=== PATIENT | male | born 1955 | race Caucasian/White ===

== ENCOUNTER 2024-01-27 07:28 | Outpatient (CLI) | payer MEDICARE, SELFPAY ==
--- NOTE | 2024-01-27 07:53 | ECG_ITS ---
Test Date: 2024-01-27 08:06:30 Measurements Intervals [place] Rate: 56 P: 8 MS: 177 QRS: -25 QRSD: 90 T: 19 QT: 430 QTc: 416 Interpretive Statements SINUS BRADYCARDIA WITH OCCASIONAL VENTRICULAR PREMATURE COMPLEXES BORDERLINE LEFT AXIS DEVIATION [QRS AXIS < -20] ABNORMAL ECG No previous ECG available for comparison Electronically Signed On 01-27-2024 15:44:47 CDT by Dino Rubin M.D.
[2024-01-27 08:19] LABS: Hematocrit 41.1 % (42.0-52.0); Mean Corpuscular HGB Conc 31.6 g/dl (32-36); Mean Corpuscular Hemoglobin 28.4 pg (26-34); Mean Corpuscular Volume 89.9 fl (80-100); Mean Platelet Volume 10.2 fl (7.4-10.4); Platelet Count Result 220 k/mm3 (150-375); Red Blood Count 4.57 M/mm3 (4.6-6.20); Red Cell Distribution Width 15.8 % (11.5-14.5); White Blood Count 4.4 K/mm3 (4.5-10.0)
[2024-01-27 08:30] LABS: Partial Thromboplastin Time 27.8 Seconds (22.3-36.8); Prothrombin Time 13.1 Seconds (11.1-14.7)
[2024-01-27 08:34] LABS: Appearance Urine Clear (Clear); Bilirubin Urine Negative (Negative); Blood Urine Negative (Negative); Color Urine Yellow (Yellow); Glucose Urine UA Negative (Negative); Ketones Urine Negative (Negative); Leukocyte Esterase Ur Negative LEU/UL (Negative); Nitrate Urine Negative (Negative); Protein Urine Negative (Negative); Specific Grav Ur 1.016 (1.001-1.035); Urobilinogen Urine 0.2 mg/dL (<2.0)
[2024-01-27 08:44] LABS: Add Urine Microscopic? NO
[2024-01-27 08:47] LABS: Anion Gap 8 mmol/L (4-12); Blood Urea Nitrogen 28 mg/dL (9-20); Calcium 9.2 mg/dL (8.4-10.2); Carbon Dioxide 27 mmol/L (22-30); Chloride 104 mmol/L (98-107); Estimated Glomerular Filt Rate > 60; Glucose 100 mg/dL (65-110); Potassium 4.7 mmol/L (3.4-5.0); Sodium 139 mmol/L (137-145)
== END 2024-01-27 07:29 | disposition home or self-care (01) ==
PROVIDERS: PCP Family Medicine; Visit Provider Neurological Surgery
DX: Z01.818 Encounter for other preprocedural examination (principal); M48.061 Spinal stenosis, lumbar region without neurogenic claudication; E78.00 Pure hypercholesterolemia, unspecified
CPT/HCPCS: 36415; 80048; 81003; 85027; 85610; 85730; 93005

== ENCOUNTER 2024-03-06 02:00 | Day surgery (SDC) | payer MEDICARE, SELFPAY ==
--- NOTE | 2024-01-25 10:56 | PC.NURSE ---
Report to the Outpatient Waiting Room, entrance under the green pavilion located off [facility], at time __11:00 AM on date ___02/07/24____. Planned Procedure Time: __1:00 PM . Time changes happen often and if your time is changed the preop area will call you the afternoon before. - You and your visitor will be asked to self-screen and do not enter if you have any COVID symptoms. - A mask is optional within the hospital at this time. Patients may have clear liquids (water, carbonated beverages, clear teas, apple juice) until 3 hours prior to surgery( 10:00 AM) with a maximum of 20 ounces. - No food from midnight until time of surgery - Infants may have breast milk until 4 hours before surgery, infant formula 6 hours prior to surgery. - Children will be allowed to drink immediately following surgery. If applicable, please bring a bottle or sippy cup to assist with drinking. Juice, water, soda, and popsicles are readily available. For infants on formula, please bring formula the day of surgery. Pacifiers are allowed. Take the following medications with a SIP of water the morning of surgery: __NONE DO NOT STOP ANY OF YOUR OTHER PRESCRIPTION MEDICATIONS PRIOR TO SURGERY ?EXCEPT THE FOLLOWING Medications to discontinue per physician __WIFE STATES HOLD ASPIRIN AND MELOXICAM 7 DAYS PRE OP PER DR HARRIS.LAST DOSE01/30/24. HOLD ALL VITAMINS AND SUPPLEMENTS 3 DAYS PRE OP .LAST DOSE 02/03/24 MAY TAKE TYLENOL IF NEEDED FOR PAIN Please no make-up, nail irish, hairspray, perfume, deodorant, or body powder the day of surgery. No jewelry (including any body piercings) or valuables the day of surgery, leave them at home. Please take a shower or bath the night before, or the morning of, surgery with an antibacterial soap. Wear comfortable, loose fitting clothing. Children are encouraged to wear pajamas. - Jewelry must be removed prior to entering the operating room. Rings and piercings that are not removed may be cut off. - The hospital will not accept responsibility for valuables. - Please leave all valuables, including medications, at home the day of surgery. If you are going home after surgery, a licensed jeep driver must drive you home. - NO public transportation without another adult if you receive anesthesia. - We recommend that an adult stay with you for 24 hours following discharge. - We also recommend that you do not drive, make important decision, drink alcoholic beverages, or take any drugs that were not prescribed by your health care provider for at least 24 hours after your discharge time. Follow any additional instructions given to you from your surgeon. If you or anyone in your household have experienced Covid symptoms in the past week, please notify your surgeon or the nurse liaison at the phone number below for possible testing. Telephone instructions given to __WIFE KIKI and asked if any additional questions and then verbalized understanding. Patient advised to call surgeon office or pre surgery nurse liaison [phone] if any additional questions.
[2024-01-25 11:08] VITALS: BMI 29.5
--- NOTE | 2024-03-01 09:33 | PC.NURSE ---
Report to the Outpatient Waiting Room, entrance under the green pavilion located off [facility], at time _1200 on date 03/06/24 . Planned Procedure Time: ___1400 . Time changes happen often and if your time is changed the preop area will call you the afternoon before. - You and your visitor will be asked to self-screen and do not enter if you have any COVID symptoms. - A mask is optional within the hospital at this time. Patients may have clear liquids (water, carbonated beverages, clear teas, apple juice) until 3 hours prior to surgery(1100AM) with a maximum of 20 ounces. - No food from midnight until time of surgery - Infants may have breast milk until 4 hours before surgery, formula 6 hours prior to surgery. - Children will be allowed to drink immediately following surgery. If applicable, please bring a bottle or sippy cup to assist with drinking. Juice, water, soda, and popsicles are readily available. For infants on formula, please bring formula the day of surgery. Pacifiers are allowed. Take the following medications with a SIP of water the morning of surgery: __NONE DO NOT STOP ANY OF YOUR OTHER PRESCRIPTION MEDICATIONS PRIOR TO SURGERY ?EXCEPT THE FOLLOWING Medications to discontinue per physician ___PT STATES HOLD ASPIRIN AND MELOXICAM 7 DAYS PRE OP PER DR HARRIS.LAST DOSE 02/27/24 STATES LAST DOSE ALL VITAMINS AND SUPPLEMENTS WAS 02/27/24 MAY TAKE TYLENOL IF NEEDED FOR PAIN Please no make-up, nail pashto, hairspray, perfume, deodorant, or body powder the day of surgery. No jewelry (including any body piercings) or valuables the day of surgery, leave them at home. Please take a shower or bath the night before, or the morning of, surgery with an antibacterial soap. Wear comfortable, loose fitting clothing. Children are encouraged to wear pajamas. - Jewelry must be removed prior to entering the operating room. Rings and piercings that are not removed may be cut off. - The hospital will not accept responsibility for valuables. - Please leave all valuables, including medications, at home the day of surgery. If you are going home after surgery, a licensed bus driver/monitor must drive you home. - NO public transportation without another adult if you receive anesthesia. - We recommend that an adult stay with you for 24 hours following discharge. - We also recommend that you do not drive, make important decision, drink alcoholic beverages, or take any drugs that were not prescribed by your health care provider for at least 24 hours after your discharge time. For Pediatric surgeries, we recommend two adults accompany the child home. Follow any additional instructions given to you from your surgeon. If you or anyone in your household have experienced Covid symptoms in the past week, please notify your surgeon or the nurse liaison at the phone number below for possible testing. Telephone instructions given to __PATIENT and asked if any additional questions and then verbalized understanding. Patient advised to call surgeon office or pre surgery nurse liaison [phone] if any additional questions.
--- NOTE | 2024-03-01 09:36 | PC.NURSE ---
PT STATES NO CHANGE IN HEALTH HX SINCE LAST INTERVIEW ON 01/25/24
[2024-03-06] VITALS (11 sets, daily range): BP systolic 112–146; BP diastolic 66–92; PULSE 60–85; RESP 12–20; TEMP 36.2–37; O2SAT 91–100; BMI 31.4
--- NOTE | ~2024-03-06 | XR_ITS ---
EXAMINATION: XR fluoroscopy no charge DATE: 03/06/2024 16:04 CDT INDICATION: L3-5 LUMBAR LAMINECTOMY . TECHNIQUE: 1 fluoroscopic image of the lumbar spine were obtained during L3-5 lumbar laminectomy, per formed by Jose Cade MD. I was not present during the procedure. Fluoroscopy exposure time wa s 2.1 seconds. Air Kerma 1.3012 mGy. DAP 0.0258 mGym2. COMPARISON: None FINDINGS/IMPRESSION: Fluoroscopic documentation of L3-5 lumbar laminectomy. Please refer to the operative note for complet e procedural details . Reviewed, dictated and finalized at location K.
[2024-03-06] MEDS: LACTATED RINGERS 1,000 ML 30 ML IV CONT ×2 (12:30→17:19)
--- NOTE | 2024-03-06 14:55 | P.PNAN_ITS ---
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 Patient Data Age: 69 Gender: M Height: 1.75 m Weight: 96.7 kg Last Vital Signs Temp 36.5 C 03/06/24 12:23 Pulse 84 03/06/24 12:23 Resp 16 03/06/24 12:23 BP 143/86 H 03/06/24 12:23 Pulse Ox 100 03/06/24 12:23 O2 Del Method Room Air 03/06/24 12:23 Allergies Allergy/AdvReac Type Severity Reaction Status Date / Time No Known Allergies Allergy Verified 03/06/24 12:21 Home Medications Medication Instructions Recorded Confirmed Type allopurinol 300 mg tablet 300 mg PO DAILY 11/29/23 03/01/24 History aspirin 81 mg tablet,delayed 81 mg PO DAILY 11/29/23 03/01/24 History release (Adult Low Dose Aspirin) meloxicam 15 mg tablet 15 mg PO DAILY 11/29/23 03/01/24 History ufiohmeiozvg-vwytdblt-lrqkiz tablet 1 tablet PO DAILY 11/29/23 03/01/24 History pravastatin 20 mg tablet 20 mg PO DAILY 11/29/23 03/01/24 History Patient hx anesthesia problems: none Family hx anesthesia problems: none Results Review: All pre-operative results and documents have been reviewed as part of the pre- operative evaluation. [facility] Past Medical History Medical History (Updated 03/06/24 @ 14:56 by Joaquín Sim MD) Obesity Surgical History Surgical History (Updated 03/06/24 @ 14:56 by Joaquín Sim MD) History of total hip arthroplasty Family History Family History Father Heart disease Mother Pancreatic cancer Social History Social History Smoking status: Never smoker Alcohol intake: never Substance use type: does not use Do You Feel Safe in your Home?: Yes Lack of Transportation: No Lack of Food: Never True Current Housing: I Have Housing Concerned About Future Housing: No Difficulty Paying Gas/Electric Bills: No Difficulty Paying for Meds: No Currently Unemployed: No Education: High School Diploma/GED Difficulty w/ Childcare or Family Care: No Living arrangements: with family Spiritual care concerns: No Anes - Eval Final PreProcedure Day of Procedure 03/06/24 14:55 Patient weight: obese Heart: regular rate and rhythm Lungs: clear to auscultation Airway: Mallampati scale class III and special considerations poor opening Neurological: alert and oriented Last oral intake: >/= 8 hours ASA classification: II Emergent: no Anesthetic plan: proceed Anesthesia type and monitoring: general ETT and standard monitoring Results Review: All pre-operative results and documents have been reviewed as part of the pre- operative evaluation. Informed Consent: The patient's anesthetic plan and its attendant risks and benefits were discussed with the patient/family/POA. Questions were solicited and answers provided to the satisfaction of the patient/family/POA.
--- NOTE | 2024-03-06 15:17 | PM.IMHP ---
H&P: HPI History of Present Illness Date/Time: 03/06/24 15:17 Chief Complaint: Neurogenic claudication Narrative: Maxx is a 69-year-old gentleman who presents with a progressive history of problems related to his low back and lower extremities proximally. Pain is mainly in his low back and he experiences it when he is standing and walking mainly. Sitting seems to relieve it. He can only walk short distances before he develops discomfort. He leaning forward her using a shopping cart do seem to help him. He does not report specific muscle group weakness or dermatomal numbness. He does not report new bowel or bladder difficulty related to these problems.The discomfort is becoming quite severe and limiting for him. He has failed nonsurgical management of this problem. The problem is progressive and severe and is limiting him substantially and he would like to have a dull with definitively. Review of Systems Review of Systems: Const Details: Const All systems reviewed & are unremarkable except as noted in HPI and below Denies chills, Denies fever(s), Denies weakness, Denies weight gain and Denies weight loss Eyes Denies change in vision and Denies diplopia ENT Denies neck pain and Denies disequilibrium Card Denies chest pain and Denies dyspnea Resp Denies cough and Denies dyspnea GI Denies abdominal pain, Denies change in bowel habits, Denies fecal incontinence and Denies vomiting Denies hematuria, Denies oliguria, Denies difficulty urinating, Denies dysuria, Denies urinary frequency, Denies urinary hesitancy, Denies urinary incontinence and Denies urinary urgency Musc Reports as per HPI, Reports back pain, Denies muscle weakness, Denies neck pain, Reports numbness and Denies stiffness Skin/ Breast Reports system reviewed and no additional complaints, except as documented Neuro Reports as per HPI, Denies burning sensations, Denies focal weakness, Reports numbness, Denies Other visual disturbances, Reports radicular pain, Reports paresthesias, Denies disequilibrium and Denies weakness Psych Reports no additional complaints, Denies depression and Denies hopelessness Endo Reports no additional complaints and Denies polyuria Sidney/ Lymph Reports no additional complaints Aller/ Immun Reports no additional complaints PMF Past Medical History Medical History (Updated 03/06/24 @ 14:56 by Joaquín Sim MD) Obesity Surgical History Surgical History (Updated 03/06/24 @ 14:56 by Joaquín Sim MD) History of total hip arthroplasty Family History Family History Father Heart disease Mother Pancreatic cancer Social History Social History Smoking status: Never smoker Alcohol intake: never Substance use type: does not use Do You Feel Safe in your Home?: Yes Lack of Transportation: No Lack of Food: Never True Current Housing: I Have Housing Concerned About Future Housing: No Difficulty Paying Gas/Electric Bills: No Difficulty Paying for Meds: No Currently Unemployed: No Education: High School Diploma/GED Difficulty w/ Childcare or Family Care: No Living arrangements: with family Spiritual care concerns: No Meds Home Medications and Allergies Home Medications Medication Instructions Recorded Confirmed Type allopurinol 300 mg tablet 300 mg PO DAILY 11/29/23 03/01/24 History aspirin 81 mg tablet,delayed 81 mg PO DAILY 11/29/23 03/01/24 History release (Adult Low Dose Aspirin) meloxicam 15 mg tablet 15 mg PO DAILY 11/29/23 03/01/24 History vwlqpwrjmryt-fwukgkln-oekawi tablet 1 tablet PO DAILY 11/29/23 03/01/24 History pravastatin 20 mg tablet 20 mg PO DAILY 11/29/23 03/01/24 History Allergies Allergy/AdvReac Type Severity Reaction Status Date / Time No Known Allergies Allergy Verified 03/06/24 12:21 Vital Signs Vital Signs - 24 hr 03/06/24 12
--- NOTE | 2024-03-06 15:18 | WPDHPUPDATE1 ---
History and Physical Update Update Date/Time: 03/06/24 15:18 History and Physical has been reviewed, including an updated exam of the patient. There are NO changes in the patient's condition. Risks, benefits, and alternatives have been discussed and questions answered. Patient agrees to proceed with procedure.
[2024-03-06] MEDS: ceFAZolin 2 GM/D5W 50 ML 2 GM/50 ML BAG IVPB (15:23)
[2024-03-06] MEDS: LIDO 1%/EPINEPHRINE 1:100,000 20 ML VIAL 10 ML INFILTRATE (15:40)
--- NOTE | 2024-03-06 17:04 | W.PM.PROC2 ---
Procedure Note - Detailed Date of Procedure 03/06/24 Pre-op Diagnosis L3-5 stenosis Post-op Diagnosis Same Procedure Performed L3-5 laminectomy Surgeon Jose Cade MD Anesthesia General Description of Procedure patient was brought to the operating room in the supine position, was sedated, intubated placed under general anesthesia in routine fashion. he was then turned into the prone position on a Michele frame. The operation on his back was examined, marked for incision, prepped and draped in routine sterile fashion. Incision was marked over the L3 through 5 spinous processes in the midline. This area was injected with 0.5% lidocaine with [id number] epinephrine. Intravenous antibiotics given prior to incision. Incision was made with a 10 blade scalpel down to the lumbodorsal fascia. A subperiosteal dissection of the muscle soft tissue away from spinous process and lamina at L3-5 was performed with a subperiosteal elevator and Bovie cautery. A verifying x-rays obtained to verify the level of operation. The L3 through 5 spinous processes were removed with a Broderick rongeur. a Midas Navneet drill with an [place] bit was used to thin the laminae in the midline and to the soft contents of the canal were encountered. Kerrison punches and curved curettes were used to define a plane with the dura removed ligament in the midline. In the lateral recess a curved curette was used to define a plane with the dura and Kerrison punches were used to remove overgrown bone and ligament. This was done starting superiorly in working inferiorly. This was done until dental insulin could be placed in the lateral epidural space to confirm lack of compression. This was confirmed. The wound was copiously irrigated with bacitracin irrigation all bleeding stopped with bipolar and Bovie cautery and Gelfoam thrombin powder. The wound was then closed in layered fashion with 2-0 Vicryl interrupted sutures in the lumbodorsal fascia and Gee's layer. 3-0 Vicryl buried interrupted sutures were placed in the dermis and skin was closed with a running 4-0 Monocryl subcuticular stitch and dressed with Dermabond. A medium Hemovac drain and then left in the subfascial position and buried out the inferior right of the incision prior to closure. Patient was allowed to wake up in the operating room and was taken to the recovery room in stable condition. There were no immediate complications of this operation. All counts were reported correct at the end of the case. Blood loss was 100 cc. The patient was neurologically at his baseline postoperatively. And dictation CPT codes: 66961, 45578 x 2 Estimated Blood Loss 100 IV Fluids 1,500 Drains Yes Complications None Condition Stable Disposition PACU [facility] Billing Surgery - Charge Forward: Surgery Billing
[2024-03-06] MEDS: fentaNYL CITRATE INJ (*CRX) 100 MCG/2 ML VIAL 25 MCG IV PUSH ×8 (17:35→18:07)
[2024-03-06] MEDS: MIDAZOLAM HCL (*CRX) 2 MG/2 ML VIAL IV PUSH (18:07)
[2024-03-06] MEDS: HYDROcodone/acetaminophen (*CRX) 10-325 MG TABLET 1 TAB PO (21:17)
[2024-03-06] MEDS: DOCUSATE SODIUM 100 MG CAPSULE PO (21:18)
[2024-03-06] MEDS: ceFAZolin 1 GM/NS 50 ML 1 GM/50 ML BAG IVPB (23:00)
[2024-03-07 01:52] VITALS: BP 103/69; PULSE 62; RESP 18; TEMP 36.7; O2SAT 99
[2024-03-07 05:52] VITALS: BP 128/61; PULSE 54; RESP 18; TEMP 36.7; O2SAT 99
[2024-03-07] MEDS: HYDROcodone/acetaminophen (*CRX) 10-325 MG TABLET 1 TAB PO (06:03)
[2024-03-07] MEDS: ceFAZolin 1 GM/NS 50 ML 1 GM/50 ML BAG IVPB (06:03)
[2024-03-07 08:00] VITALS: BP 113/76; PULSE 66; RESP 18; TEMP 36.6; O2SAT 100
[2024-03-07 08:40] VITALS: O2SAT 100
[2024-03-07] MEDS: PRAVASTATIN SODIUM 20 MG TABLET PO (08:40)
[2024-03-07] MEDS: allopurinoL 300 MG TABLET PO (08:40)
[2024-03-07] MEDS: DOCUSATE SODIUM 100 MG CAPSULE PO (08:40)
--- NOTE | 2024-03-07 09:53 | WPDNEUROSGPN ---
Subjective Date/time seen: 03/07/24 09:53 Interval history: Doing well. Back pain adequately controlled. No leg pain/paresthesias. Walked halls. Tolerating PO intake. Voiding independently. Review of Systems Review of Systems: All systems reviewed & are unremarkable except as noted in HPI and below Exam Narrative: AOx4 full strength in legs Sensation intact Incision c/d/i Objective Data Vital Signs Vital Signs: Vital Signs - 24 hr 03/06/24 12:23 03/06/24 17:19 03/06/24 17:35 Temperature 97.7 F 97.1 F L 97.8 F Pulse Rate 84 80 80 Respiratory Rate 16 13 13 Blood Pressure 143/86 H 132/83 112/66 Pulse Oximetry 100 100 100 Oxygen Delivery Room Air Simple Face Mask Simple Face Mask Oxygen Flow Rate 8 8 03/06/24 17:50 03/06/24 18:05 03/06/24 18:22 Temperature Pulse Rate 85 72 78 Respiratory Rate 13 12 12 Blood Pressure 137/89 128/92 H 130/68 Pulse Oximetry 100 100 95 Oxygen Delivery Room Air Room Air Nasal Cannula Oxygen Flow Rate 3 03/06/24 18:39 03/06/24 19:12 03/06/24 19:27 Temperature 97.7 F 97.9 F Pulse Rate 70 63 68 Respiratory Rate 12 20 18 Blood Pressure 136/87 131/90 146/83 H Pulse Oximetry 100 91 100 Oxygen Delivery Nasal Cannula Oxygen Flow Rate 3 03/06/24 19:57 03/06/24 20:57 03/07/24 01:52 Temperature 98.0 F 98.6 F 98.0 F Pulse Rate 63 60 62 Respiratory Rate 18 18 18 Blood Pressure 132/77 132/72 103/69 Pulse Oximetry 100 100 99 Oxygen Delivery Oxygen Flow Rate 03/07/24 05:52 03/07/24 08:00 03/07/24 08:45 Temperature 98.1 F 97.8 F Pulse Rate 54 L 66 Respiratory Rate 18 18 Blood Pressure 128/61 113/76 Pulse Oximetry 99 100 Oxygen Delivery Room Air Oxygen Flow Rate 03/07/24 08:40 Temperature Pulse Rate Respiratory Rate Blood Pressure Pulse Oximetry 100 Oxygen Delivery Room Air Oxygen Flow Rate Intake/Output Intake/Output: Intake & Output 03/04/24 03/05/24 03/06/24 03/07/24 23:59 23:59 23:59 23:59 Intake Total 2300 354 Output Total 70 50 Balance 2230 304 Meds/Results Medications: Active Medications Generic Name Dose Route Start Last Admin Trade Name Freq PRN Reason Stop Dose Admin Hydrocodone Bitart/Acetaminophen 1 tab 03/06/24 18:52 Hydrocodone/Acetaminophen (*Crx) 5-325 Mg Tablet PO Q4H PRN Mild Pain (1-3) Hydrocodone Bitart/Acetaminophen 1 tab 03/06/24 18:52 03/07/24 06:03 Hydrocodone/Acetaminophen (*Crx) 10-325 Mg Tablet PO 1 tab Q4H PRN Administration Moderate Pain (4-6) Al Hydrox/Mg Hydrox/Simethicone 20 ml 03/06/24 18:52 Mag Hydrox/Al Hydrox/Simeth 30 Ml Udc PO Q4H PRN Indigestion/Heartburn Allopurinol 300 mg 03/07/24 09:00 03/07/24 08:40 Allopurinol 300 Mg Tablet PO 300 mg DAILY ARTIS Administration Bisacodyl 10 mg 03/06/24 18:52 Bisacodyl 10 Mg Suppository RECTAL DAILY PRN Constipation Cyclobenzaprine HCl 10 mg 03/06/24 18:52 Cyclobenzaprine Hcl 10 Mg Tablet PO TID PRN Muscle Spasms Docusate Sodium 100 mg 03/06/24 21:00 03/07/24 08:40 Docusate Sodium 100 Mg Capsule PO 100 mg Q12HR ARTIS Administration Cefazolin Sodium 1 gm in 50 mls @ 100 mls/hr 03/06/24 23:00 03/07/24 06:03 Ancef 1 Gm/Ns 50 Ml IVPB 100 mls/hr Q8H ARTIS Administration Miscellaneous Information 1 each 03/06/24 00:01 Ocuvite Entered However Multi-Vit With Minerals And Leutien Attached As Home Med. Home Me XX 04/05/24 00:00 [facility] Morphine Sulfate 2 mg 03/06/24 18:52 Morphine Sulfate (*Crx) 2 Mg/Ml Inj IV PUSH Q2H PRN Pain Rated 7-10 Multivitamins/Minerals 1 tablet 03/07/24 09:00 Opti-Gen Tab PO DAILY ARTIS Ondansetron HCl 4 mg 03/06/24 18:52 Ondansetron Inj 4 Mg/2 Ml Vial IV PUSH Q8H PRN Nausea And Vomiting Pravastatin Sodium 20 mg 03/07/24 09:00 03/07/24 08:40 Pravastatin Sodium 20 Mg Tablet PO 20 mg DAILY ARTIS Administration Senna/Lait
[2024-03-07] MEDS: HYDROcodone/acetaminophen (*CRX) 5-325 MG TABLET 1 TAB PO (11:33)
--- NOTE | 2024-03-07 11:37 | WPDANESPN ---
Anes - Prog Note Post-Op Date/Time: 03/07/24 11:37 Cardiovascular status: normal Respiratory status: normal Airway patency: baseline Mental status: baseline Post-Op hydration status: normal Vital Signs: Last Vital Signs Temp 36.6 C 03/07/24 08:00 Pulse 66 03/07/24 08:00 Resp 18 03/07/24 08:00 BP 113/76 03/07/24 08:00 Pulse Ox 100 03/07/24 08:40 O2 Del Method Room Air 03/07/24 08:45 O2 Flow Rate 3 03/06/24 18:39 Pain Score (VAS): 0 I/O: Intake & Output 03/06/24 03/07/24 03/07/24 23:59 07:59 15:59 Intake Total 2250 354 Output Total 70 50 30 Balance 2180 -50 324 Post-procedural complaints: none Patient Feedback: Patient satisfied with anesthetic care.
== END 2024-03-07 12:27 | disposition home or self-care (01) ==
LOC: ANHSURGERY 11:45 → ANH3MEDSUR 19:00
PROVIDERS: PCP Family Medicine; Visit Provider Neurological Surgery
PROC: (CPT 63005; principal; 2024-03-06 14:00)
DX: M48.062 Spinal stenosis, lumbar region with neurogenic claudication (principal); Z79.82 Long term (current) use of aspirin; E66.9 Obesity, unspecified; Z68.31 Body mass index [BMI] 31.0-31.9, adult
CPT/HCPCS: 63047; 63048; 97161; 97165; 97535; 99199; A9270; J0330; J0690; J1100; J2250; J2704; J3010; J7120

== ENCOUNTER 2024-12-20 09:19 | Outpatient (CLI) | payer MEDICARE, SELFPAY ==
--- NOTE | ~2024-12-20 | XR_ITS ---
Lumbosacral Spine: AP and lateral views Clinical History: Pain Findings: The normal lordotic curve is maintained. No fracture seen. There is 5 mm retrolisthesis of L2 over L3. There is 5 mm anterolisthesis of L3 over L4. No definite instability seen on flexion or e xtension. There is moderate to advanced degenerative disc narrowing throughout the lumbar spine. Ther e is moderate to advanced facet arthropathy from L3 through S1. The sacroiliac joints are normally ou tlined. Impression: Moderate to advanced degenerative spondylosis, as above. 5 mm retrolisthesis of L2 over L3. 5 mm anterolisthesis of L3 over L4. Reviewed, dictated and finalized at location M. Impression: Moderate to advanced degenerative spondylosis, as above. 5 mm retrolisthesis of L2 over L3. 5 mm anterolisthesis of L3 over L4.
--- NOTE | ~2024-12-20 | MR_ITS ---
MRI of the lumbar spine Clinical History: Back pain Technique: Axial T2-weighted images, and sagittal T1-weighted, T2-weighted, and T2 fat-sat images wer e acquired. Following intravenous administration of 19 cc ProHance gadolinium, T1-weighted fat-sat im aging was performed in the axial and sagittal planes. Findings: No acute fracture seen. There is 3 mm anterolisthesis of L3 over L4. There is 6 mm retrolis thesis of L5 over S1. There is reactive marrow signal changes about the L4-L5 disc space. At L1-L2, there is severe degenerative disc narrowing. There is mild disc bulge and mild facet arthro irena. No central canal stenosis. There is mild bilateral neural foraminal narrowing. At L2-L3, there is severe degenerative disc narrowing. There is disc bulge with moderate facet arthro irena. No central canal stenosis. There is advanced left neural foraminal narrowing, and moderate rig ht neural foraminal narrowing. At L3-L4, there is severe degenerative disc narrowing. There is disc bulge and severe facet arthropat hy. There is probable prior posterior decompression. No wilma canal stenosis. There is severe left ne ural foraminal narrowing, and moderate to advanced right neural foraminal narrowing. At L4-L5, there is severe degenerative disc narrowing. There is disc bulge with advanced facet arthro irena. There is prior posterior decompression. No spinal canal stenosis. There is severe right neural foraminal narrowing, and moderate to severe left neural foraminal narrowing. At L5-S1, there is moderate degenerative disc narrowing. There is disc bulge with moderate facet arth ropathy. No central canal stenosis. There is severe bilateral neural foraminal compromise. Paravertebral soft tissues are unremarkable. No abnormal postcontrast enhancement identified. Impression: Severe degenerative spondylosis, with multilevel advanced neural foraminal narrowing, as detailed abo ve. Prior posterior decompression at L3 and L4. 3 mm anterolisthesis of L3 over L4. New 6 mm retrolisthesis of L5 over S1. Reviewed, dictated and finalized at location M. Impression: Severe degenerative spondylosis, with multilevel advanced neural foraminal narr owing, as detailed above. Prior posterior decompression at L3 and L4. 3 mm anterolisthesis of L3 over L4. New 6 mm retrolisthesis of L5 over S1.
== END 2024-12-20 09:20 | disposition home or self-care (01) ==
PROVIDERS: PCP Family Medicine; Visit Provider Nurse Practitioner Adult Health
DX: M47.896 Other spondylosis, lumbar region (principal); M48.061 Spinal stenosis, lumbar region without neurogenic claudication; M43.17 Spondylolisthesis, lumbosacral region; M43.16 Spondylolisthesis, lumbar region
CPT/HCPCS: 72110; 72158; A9579

== ENCOUNTER 2025-01-22 06:44 | Day surgery (SDC) | payer MEDICARE, SELFPAY ==
--- NOTE | ~2025-01-22 | XR_ITS ---
INTRAOPERATIVE FLUOROSCOPY: CLINICAL HISTORY: 70 years old Male; LEFT L4-5 L5-S1 TRANSFORAMINAL EPIDURAL STEROID INJECTION PROCEDURE COMMENTS: Limited intraoperative fluoroscopy of the lumbar spine was performed. CUMULATIVE DOSE: 31 mGy FLUOROSCOPY TIME: 50 seconds FINDINGS/IMPRESSION: Please refer to operative note for further details. Reviewed, dictated and finalized at location A.
[2025-01-22 07:20] VITALS: BP 139/86; PULSE 68; RESP 14; TEMP 36.8; O2SAT 100
--- NOTE | 2025-01-22 07:23 | WPDHPUPDATE1 ---
History and Physical Update Update Date/Time: 01/22/25 07:23 History and Physical has been reviewed, including an updated exam of the patient. There are NO changes in the patient's condition. Risks, benefits, and alternatives have been discussed and questions answered. Patient agrees to proceed with procedure.
--- NOTE | 2025-01-22 07:24 | P.OP_ITS ---
Procedure Note - Detailed Date of Procedure 01/22/25 Pre-op Diagnosis Spinal Stenosis, Lumbosacral Region Post-op Diagnosis Same Procedure Performed Left Lumbar Transforaminal Epidural Steroid Injection under Fluoroscopic Guidance and with Contrast Control at L4-5, L5-S1. Surgeon Joao Iniguez MD Anesthesia Local Description of Procedure INFORMED CONSENT: Risks, benefits and alternatives to the procedure were discussed in detail with the patient who expressed explicit understanding and consent to proceed. Patient was informed verbally and in written form regarding the risks associated with the procedure including the low risk of serious infection, bleeding/bruising, allergic reaction, nerve or organ injury, paralysis, procedural site pain or discomfort, worsening pain and/or mobility, failure to treat and/or disfigurement. The patient expressed explicit understanding and consent to proceed. All materials required for the procedure were available prior to procedure start. Site and side was marked prior to procedure and confirmed in the presence of the patient. PROCEDURE IN DETAIL: The patient was brought to the procedural suite and placed in the prone position. Patient was made comfortable with use of pillows under the head/chest, hips and ankles. Skin overlying the injection site was prepared broadly with ChloraPrep applicator and draped in a sterile manner. Aseptic technique was employed throughout. The endplates of the vertebral body at the site of interest were aligned in the AP view. Ipsilateral oblique angulation was utilized to better visualize the neuroforamen of interest. Local anesthesia was established by infiltration with approximately 5 mL of 0.5% PF lidocaine via a 1-1/2 inch 27-gauge needle. A 22-gauge 5.0 inch Ortega (pencil point) spinal needle was advanced until the needle approached the 6 o'clock position on the pedicle just superior to the exiting nerve root. on the left at L4-5. Lateral view was utilized to confirm appropriate position of the needle tip within the superior and posterior portion of the respective foramen. In an AP view, 1 mL of Omnipaque 300 contrast medium was injected after negative aspiration for CSF, blood or other bodily fluid, showing appropriate neurogram without evidence of intravascular or intrathecal spread of contrast. Digital subtraction imaging was used with an additional 1ml of the same contrast medium to confirm absence of intravascular contrast spread. A 1mL solution containing 3 mg of betamethasone was injected after negative repeat aspiration. Appropriate spread of the injectate was confirmed with washout of previously injected contrast. No parasthesias were elicited. Needle was removed completely intact without difficulty. The same exact procedure was repeated for all remaining levels on the ipsilateral side, left L5-S1 neuroforamen, modified as necessary to accommodate for the new target location with identical findings and results and no evidence of complication. Images were saved and documented in the patient chart. Patient's skin was cleaned and sterile bandage applied. The patient tolerated the procedure well. The patient was transported to the recovery area in stable condition where they were observed for an appropriate amount of time prior to discharge, without evidence of complication. The patient was instructed to avoid excessive activity for the next 48 hours, including climbing and frequent use of stairs. Showers only for 48 hours. They w ere instructed not to drive or operate heavy machinery for 24 hours. They are to monitor for severe headaches, fevers, chills, night sweats, erythema/swelling at the site or any other signs of infection, bleeding/bruising, bowel or bladder changes as well as new pain, weakness or numbness in the upper or lower extremity. Should they notice these changes, they are instructed to call our office immediately or report directly to the nearest Emergency Department if no answer or if after posted office hours. COMPLICATIONS: None COMMENTS: None CONTRAST WASTED: 26 mL Omnipaque 300. STEROID WASTED: 0 mg of betamethasone. Complications No immediate complications Condition Stable Disposition Same day [facility] Billing Surgery - Charge Forward: Surgery Billing
[2025-01-22 08:01] VITALS: BP 162/78; PULSE 68; RESP 13; O2SAT 99
[2025-01-22 08:07] VITALS: BP 179/87; PULSE 70; RESP 10; O2SAT 99
[2025-01-22] MEDS: LIDOCAINE 2% PF LOCAL INJ 5 ML VIAL 1 ML INFILTRATE (08:07)
[2025-01-22] MEDS: BETAMETHASONE SODIUM PHOSPHATE PF INJ 6 MG/ML VIAL INFILTRATE (08:08)
[2025-01-22] MEDS: LIDOCAINE 1% PF INJ 5 ML VIAL 1.5 ML INFILTRATE (08:09)
[2025-01-22 08:12] VITALS: BP 139/84; PULSE 71; RESP 18; O2SAT 100
== END 2025-01-22 08:25 | disposition home or self-care (01) ==
PROVIDERS: PCP Family Medicine; Visit Provider Anesthesiology Pain Medicine
PROC: (CPT 64483; principal; 2025-01-22 07:50)
DX: M48.07 Spinal stenosis, lumbosacral region (principal)
CPT/HCPCS: 64483; 64484; 99199

== ENCOUNTER 2025-03-20 11:33 | Outpatient (CLI) | payer MEDICARE, SELFPAY ==
--- OUTSIDE RECORDS SUMMARY | 2025-03-20 12:07 | XMS_ITS | Encounter Summary ---
Author Organization [facility] Address [facility] [place] [address] Care Team Providers Care Nuclear Reactor Engineer Name Role Phone Venancio Sapp MD Primary Care Provider + Encounter Details Date Type Department Care Team (Late st Contact Info) Description 01/06/2017 Abstract [facility] Venancio Sapp MD [address] [phone] Social History Tobacco Use Types Packs/Day Years Used Date Smoking Tobacco: Never Sex and Gender Information Value Date Recorded Sex Assigned at Male 08/22/2023 8:32 AM PRODUCT DEVELOPMENT ENGINEER Legal Sex Male 7:01 PM CDT Gender Identity Male 08/22/2023 8:32 AM PRODUCT DEVELOPMENT ENGINEER Sexual Orientation Not on file documented as of this encounter Miscellaneous Notes * Letter - Venancio Sapp MD - 01/06/2017 12:00 AM CDT Jan 06, 2017 Maxx Velazquez [address] [place] [address] Dear Maxx Velazquez, Thank you for choosing [facility] for your health care needs. We appreciate the opportunity to help you maintain your well being. You recently had labs drawn. Your results came back normal. Please remember to follow up as discussed at your last appointment .If you have any questions please feel free to call the office at [phone], Option #3 or Option #1 to make an appointment to discuss these results. Respectfully Yours, Electronically Signed by: Venancio Sapp MD Cc: Patients Medical Record UCT DEVELOPMENT ENGINEER documented in this encounter Plan of Treatment Not on file documented as of this encounter Visit Diagnoses Not on filedocumented in this encounter Additional Health Concerns Infection Onset Date Last Indicated Resolved Time COVID-19 Rule Out 06/11/2021 06/11/2021 06/11/2021 9:25 AM PRODUCT DEVELOPMENT ENGINEER COVID-19 Rule Out 06/12/2021 06/12/2021 06/12/2021 3:46 PM PRODUCT DEVELOPMENT ENGINEER documented as of this encounter Care Teams Nuclear Reactor Engineer Relationship Specialty Start Date End Date Venancio Sapp MD [address] [place] [phone] PCP - General FAMILY PRACTICE 08/23/18 documented as of this encounter
--- OUTSIDE RECORDS SUMMARY | 2025-03-20 12:07 | XMS_ITS | Encounter Summary ---
Author Organization [facility] Address [facility] [place] [address] Care Team Providers Care Tobacco Checkout Clerk Name Role Phone Venancio Sapp MD Primary Care Provider + Encounter Details Date Type Department Care Team (Late st Contact Info) Description 03/15/2003 Abstract [facility] Conversion , Generic Conversion, Social History Tobacco Use Types Packs/Day Years Used Date Smoking Tobacco: Never Assessed Sex and Gender Information Value Date Recorded Sex Assigned at Male 08/22/2023 8:32 AM INTERNATIONAL RELATIONS PROFESSOR Legal Sex Male 7:01 PM CDT Gender Identity Male 08/22/2023 8:32 AM INTERNATIONAL RELATIONS PROFESSOR Sexual Orientation Not on file documented as of this encounter Plan of Treatment Not on file documented as of this encounter Visit Diagnoses Not on filedocumented in this encounter Additional Health Concerns Infection Onset Date Last Indicated Resolved Time COVID-19 Rule Out 06/11/2021 06/11/2021 06/11/2021 9:25 AM INTERNATIONAL RELATIONS PROFESSOR COVID-19 Rule Out 06/12/2021 06/12/2021 06/12/2021 3:46 PM INTERNATIONAL RELATIONS PROFESSOR documented as of this encounter Care Teams Tobacco Checkout Clerk Relationship Specialty Start Date End Date Venancio Sapp MD [address] [phone] PCP - General FAMILY PRACTICE 08/23/18 documented as of this encounter
--- OUTSIDE RECORDS SUMMARY | 2025-03-20 12:07 | XMS_ITS | Encounter Summary ---
Author Organization [facility] Address [facility] [place] [address] Care Team Providers Care Pile Operator Name Role Phone Venancio Sapp MD Primary Care Provider + Encounter Details Date Type Department Care Team (Latest Contact Info) Description 03/12/2025 Scan [facility] Scanned, Doc Med Group Social History Tobacco Use Types Packs/Day Years Used Date Smoking Tobacco: Never Passive Smoke Exposure: Never Smokeless Tobacco: Never Alcohol Use Standard Drinks/Week Comments No 0 (1 standard drink = 0.6 oz pur e alcohol) AUDIT-C Answer Date Recorded Frequency of Alcohol Consumption Never 08/23/2018 Average Number of Drinks Not on file 019 Frequency of Binge Drinking Not on file 08/02 Overall Financial Resource Strain (CARDIA) Answe r Date Recorded How hard is it for you to pa y for the very basics like food, housing, medical care, and heating? Not hard at all 05/01/2020 PHQ-2 Answer Date Recorded Patient Health Questionnaire-2 Score 0 10/02/2024 Hunger Vital Sign Answer Date Recorded Within the past 12 months, y ou worried that your food would run out before you got the money to buy more. Never true 05/01/20 20 Within the past 12 months, t he food you bought just didn't last and you didn't have money to get more. Never true 05/01/2020 Sex and Gender Information Value Date Recorded Sex Assigned at Male 08/22/2023 8:32 AM MEDICAL TECHNOLOGIST GENERALIST Legal Sex Male 7:01 PM CDT Gender Identity Male 08/22/2023 8:32 AM MEDICAL TECHNOLOGIST GENERALIST Sexual Orientation Not on file documented as of this encounter Functional Status * RETIRED Are you deaf or do you have serious difficulty hearing Answer Date of Assessment Author Status No 05/01/2020 3:11 PM CDT Activ e * RETIRED Are you blind or do you have serious difficulty seeing, even when wearing glasses? Answer Date of Assessment Author Status No 05/01/2020 3:11 PM CDT Activ e * Do you have serious difficulty walking or climbing stairs? Answer Date of Assessment Author Status No 05/01/2020 3:11 PM CDT Ruth Chen RN Active * Do you have difficulty dressing or bathing? Answer Date of Assessment Author Status No 05/01/2020 3:11 PM CDT Ruth Chen RN Active * Because of a physical, mental, or emotional condition, do you have difficulty doing errands alone such as visiting a doctor's office or shopping? Answer Date of Assessment Author Status No 05/01/2020 3:11 PM CDT Ruth Chen RN Active documented as of this encounter Mental Status * Because of a physical, mental, or emotional condition, do you have serious difficulty concentrating, remembering, or making decisions? Answer Entry Date Author Status No 05/01/2020 3:11 PM CDT Ruth Chen RN Active documented in this encounter Plan of Treatment Not on file documented as of this encounter Visit Diagnoses Not on filedocumented in this encounter Additional Health Concerns Assessment Noted Time PHQ-9 Depression Total Score: 0 06/11/20 21 8:40 AM MEDICAL TECHNOLOGIST GENERALIST documented as of this encounter Care Teams Pile Operator Relationship Specialty Start Date End Date Venancio Sapp MD [address] [facility] [address] [place] [address] PCP - General FAMILY PRACTICE 08/23/18 documented as of this encounter
--- OUTSIDE RECORDS SUMMARY | 2025-03-20 12:07 | XMS_ITS | Encounter Summary ---
Author Organization [facility] Address [facility] [place] [address] Care Team Providers Care Switching Operator Name Role Phone Venancio Sapp MD Primary Care Provider + Encounter Details Date Type Department Care Team (Late st Contact Info) Description 04/19/2016 Abstract [facility] CONVERSION [address] [place] [address] , Generic ConversionMD Social History Tobacco Use Types Packs/Day Years Used Date Smoking Tobacco: Never Assessed Sex and Gender Information Value Date Recorded Sex Assigned at Male 08/22/2023 8:32 AM HYDRAULIC CONTROLS TECHNICIAN Legal Sex Male 7:01 PM CDT Gender Identity Male 08/22/2023 8:32 AM HYDRAULIC CONTROLS TECHNICIAN Sexual Orientation Not on file documented as of this encounter Plan of Treatment Not on file documented as of this encounter Visit Diagnoses Not on filedocumented in this encounter Additional Health Concerns Infection Onset Date Last Indicated Resolved Time COVID-19 Rule Out 06/11/2021 06/11/2021 06/11/2021 9:25 AM HYDRAULIC CONTROLS TECHNICIAN COVID-19 Rule Out 06/12/2021 06/12/2021 06/12/2021 3:46 PM HYDRAULIC CONTROLS TECHNICIAN documented as of this encounter Care Teams Switching Operator Relationship Specialty Start Date End Date Venancio Sapp MD [address] [phone] PCP - General FAMILY PRACTICE 08/23/18 documented as of this encounter
--- OUTSIDE RECORDS SUMMARY | 2025-03-20 12:07 | XMS_ITS | Encounter Summary ---
Author Organization [facility] Address [facility] [place] [address] Care Team Providers Care Sales Training Representative Name Role Phone Venancio Sapp MD Primary Care Provider + Encounter Details Date Type Department Care Team (Late st Contact Info) Description 10/06/2017 Abstract [facility] Venancio Sapp MD [address] [phone] Social History Tobacco Use Types Packs/Day Years Used Date Smoking Tobacco: Never Sex and Gender Information Value Date Recorded Sex Assigned at Male 08/22/2023 8:32 AM BLUEPRINT REPRODUCER Legal Sex Male 7:01 PM CDT Gender Identity Male 08/22/2023 8:32 AM BLUEPRINT REPRODUCER Sexual Orientation Not on file documented as of this encounter Miscellaneous Notes * Letter - Venancio Sapp MD - 10/06/2017 12:00 AM CST Oct 06, 2017 Maxx Velazquez [address] [place] [address] Dear Maxx Velazquez, Thank you for choosing [facility] for your health care needs. We appreciate the opportunity to help you maintain your well being. [facility] The hospital will mail these results to you. Your results came back normal. Please remember to follow up as discussed at your last appointment .If you have any questions please feel free to call the office at [phone], Option #3 or Option #1 to make an appointment to discuss these results. Respectfully Yours, Electronically Signed by: Venancio Sapp MD Cc: Patients Medical Record PRINT REPRODUCER documented in this encounter Plan of Treatment Not on file documented as of this encounter Visit Diagnoses Not on filedocumented in this encounter Additional Health Concerns Infection Onset Date Last Indicated Resolved Time COVID-19 Rule Out 06/11/2021 06/11/2021 06/11/2021 9:25 AM BLUEPRINT REPRODUCER COVID-19 Rule Out 06/12/2021 06/12/2021 06/12/2021 3:46 PM BLUEPRINT REPRODUCER documented as of this encounter Care Teams Sales Training Representative Relationship Specialty Start Date End Date Venancio Sapp MD [address] [phone] PCP - General FAMILY PRACTICE 08/23/18 documented as of this encounter
--- OUTSIDE RECORDS SUMMARY | 2025-03-20 12:07 | XMS_ITS | Clinical Summary ---
Author Organization [facility] Address [facility] [place] [address] Care Team Providers Care Steward/Stewardess Room Name Role Phone Venancio Sapp MD Primary Care Provider + Allergies Active Allergy Reactions Criticality Noted Date Comments Ragweed Unknown 05/10/2007 Medications multivitamin tablet Take 1 tablet by mouth daily. 016 Active aspirin EC (ECOTRIN) 81 MG tablet Take 1 tablet (81 mg total) by mouth daily. 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, unspecified cause, unspecified site TAKE 1 TABLET BY MOUTH DAILY 100 tablet 2 025 Active pravastatin (PRAVACHOL) 40 MG tabletIndications:Pure hypercholesterolemia TAKE ONE-HALF TABLET BY MOUTH DAILY 50 tablet 2 025 Active meloxicam (MOBIC) 15 MG tabletIndications:Shoul jolly pain, unspecified chronicity, unspecified laterality,Bilateral primary osteoarthritis of knee,Primary osteoarthritis of right hip,Primary osteoarthritis of left hip TAKE 1 TABLET BY MOUTH DAILY 100 tablet 2 025 Active meloxicam (MOBIC) 15 MG tabletIndications:Shoul jolly pain, unspecified chronicity, unspecified laterality,Bilateral primary osteoarthritis of knee,Primary osteoarthritis of right hip,Primary osteoarthritis of left hip take 1 tablet by mouth daily 100 tablet 2 024 2024 Discontinued pravastatin (PRAVACHOL) 40 MG tabletIndications:Pure hypercholesterolemia TAKE ONE-HALF TABLET BY MOUTH DAILY 50 tablet 1 025 2024 Discontinued Active Problems Problem Noted Date Diagnosed Date Piriformis syndrome, left 06/13/2024 Low back pain 06/13/2024 Lumbar radiculopathy 09/15/2023 Osteoarthritis of right knee 11/17/2022 Greater trochanteric bursitis of left hip 2020 Assessment & Plan (08/02/2021 8:51 PM JOURNEYMAN APPRENTICE ELECTRICIANS): Some improvement in left hip pain but not complete. Is wanting to proceed with injection into the hip joint proper to see if that gives him the relief that he is looking for. Assessment & Plan (07/12/2021 4:16 PM JOURNEYMAN APPRENTICE ELECTRICIANS): We discussed the risks, benefits and alternatives. Steroid is injected into the greater trochanteric bursa. If this gives any relief that he is looking for a can be repeated every 3 months. If it does not, consider injection into the hip joint proper to rule out pain radiating from the joint itself Bilateral primary osteoarthritis of knee 021 Assessment & Plan (08/02/2021 8:50 PM JOURNEYMAN APPRENTICE ELECTRICIANS): We discussed the risks, benefits and alternatives. The only thing proven to slow the progression of osteoarthritis is weight loss. Every pound lost relieves 4 to 6 pounds of stress across the knee. We discussed unloading braces. Formal physical therapy to help with flexibility, mobility and strength. We discussed TENS units. Nonsteroidal anti-inflammatories as well as Tylenol and pain medication and their side effects. We discussed steroid versus Visco supplement injection. We discussed eventual total knee arthroplasty. Synvisc injected today Follow-up in 3 months Assessment & Plan (07/12/2021 4:17 PM JOURNEYMAN APPRENTICE ELECTRICIANS): We discussed the risks, benefits and alternatives. The only thing proven to slow the progression of osteoarthritis is weight loss. Every pound lost relieves 4 to 6 pounds of stress across the knee. We discussed unloading braces. Formal physical therapy to help with flexibility, mobility and strength. We discussed TENS units. Nonsteroidal anti-inflammatories as well as Tylenol and pain medication and their side effects. We discussed steroid versus Visco supplement injection. We discussed eventual total knee arthroplasty. 04/29/2021 patient failed steroid injection, attempted weight loss and meloxicam 05/26/2021 failed diclofenac, TENS unit and physical therapy Since he is having no significant relief consider viscosupplementation Assessment & Plan (05/26/2021 7:21 PM CDT): We discussed the risks, benefits and alternatives. The only thing proven to slow the progression of osteoarthritis is weight loss. Every pound lost relieves 4 to 6 pounds of stress across the knee. We discussed unloading braces. Formal physical therapy to help with flexibility, mobility and strength. We discussed TENS units. Nonsteroidal anti-inflammatories as well as Tylenol and pain medication and their side effects. We discussed steroid versus Visco supplement injection. We discussed eventual total knee arthroplasty. After going over the risks, benefits and alternatives we will change his meloxicam to diclofenac 75 mg twice daily. Begin physical therapy at [facility]. TENS unit to help control pain 30 minutes twice daily. Patient needs to fail 6 weeks of physical therapy before insurance would consider viscosupplementation. Too soon for repeat steroid injection. Follow-up in 6 weeks. Assessment & Plan (05/04/2021 11:32 AM CDT): We discussed the risks, benefits and alternatives. The only thing proven to slow the progression of osteoarthritis is weight loss. Every pound lost relieves 4 to 6 pounds of stress across the knee. We discussed unloading braces. Formal physical therapy to help with flexibility, mobility and strength. We discussed TENS units. Nonsteroidal anti-inflammatories as well as Tylenol and pain medication and their side effects. We discussed steroid versus Visco supplement injection. We discussed eventual total knee arthroplasty. After going over the risks, benefits and alternatives would like to try just the injection to the right knee today. Meloxicam 15 mg once daily Follow-up in 6 weeks if no significant improvement. Preapproval for viscosupplementation Primary osteoarthritis of left hip 05/04/2021 Assessment & Plan (08/02/2021 8:51 PM JOURNEYMAN APPRENTICE ELECTRICIANS): Radiology to inject the left hip under fluoroscopic guidance Assessment & Plan (05/04/2021 11:33 AM CDT): Mild to moderate osteoarthritis with joint space narrowing and cam lesion noted to the left hip. Patient will try meloxicam 15 mg once daily. If no significant improvement with injection to the right knee might consider steroid injection into the hip before total hip arthroplasty. Patient had previous total hip arthroplasty on the right by Dr. Anderson Obesity (BMI 30-39.9) 05/04/2021 Assessment & Plan (07/12/2021 4:17 PM JOURNEYMAN APPRENTICE ELECTRICIANS): We discussed the adverse effects of weight on osteoarthritis of the knee. For every 1 pound loss, 4 to 6 pounds of stress is relieved from the knee. We discussed low carbohydrate diet to help with weight loss. 80% of weight loss is through diet. Assessment & Plan (05/26/2021 7:21 PM CDT): We discussed the adverse effects of weight on osteoarthritis of the knee. For every 1 pound loss, 4 to 6 pounds of stress is relieved from the knee. We discussed low carbohydrate diet to help with weight loss. 80% of weight loss is through diet. Assessment & Plan (05/04/2021 11:33 AM CDT): We discussed the adverse effects of weight on osteoarthritis of the knee. For every 1 pound loss, 4 to 6 pounds of stress is relieved from the knee. We discussed low carbohydrate diet to help with weight loss. 80% of weight loss is through diet. Pulmonary embolism ([facility]) 05/01/2020 Primary osteoarthritis of right hip 08/23/2018 Gout 09/20/2017 Gout 02/07/2013 Overview (08/23/2018): take allopurinol Pure hypercholesterolemia 02/07/2013 Overview (08/23/2018): due Encounters Date Type Department Care Team Description 03/12/2025 Scan [facility] Scanned, [facility] 02/06/2025 Scan [facility] Scanned, [facility] 01/22/2025 Scan [facility] Scanned, [facility] Procedure (SCAN) 01/08/2025 Scan [facility] Scanned, [facility] 01/02/2025 Scan [facility] Scanned, [facility] 12/20/2024 Scan [facility] Scanned, [facility] MRI (SCAN); Image (SCAN) from Last 3 Months Immunizations Immunization Administration Dates Next Due Flucelvax 2 YRS+ (Multi-Dose Vial) 05/18/2019 Fluzone High Dose (IIV, triv alent, 0.5mL) 05/31/2024 Fluzone High Dose - >Age 65 (Prefilled Syringe) 05/27/2023 Influenza (Generic) 05/18/2019 Influenza Adult (Generic) 05/16/2021,09/2019,05/18/2019,2017,05/10/2012 MODERNA COVID-19 (12+) MRNA, LNP-S, PF, 100 MCG/ 0.5 ML DOSE 10/02/2020,09/04/2020 MODERNA COVID-19 (NURSING HOME MANAGER MARCO A MASON), MRNA, LNP-S, PF, 50 MCG/ 0.25 ML DOSE 01/13/2022,06/23/2021 Pneumococcal (Pneumovax 23) 06/02/2020 Shingrix 06/03/2023,03/16/2023 Tdap (Adacel) 03/16/2022 Zoster (Zostavax) 72744 Unt/0.65Ml 01/29/2015 Family History Medical History Relation Comments Heart Disease Father Lung Cancer Mother cancer pancreas Mother Relation Status Comments Father Mother Social History Tobacco Use Types Packs/Day Years Used Date Smoking Tobacco: Never Passive Smoke Exposure: Never Smokeless Tobacco: Never Tobacco Cessation:Counseling Given: No Alcohol Use Standard Drinks/Week Comments No 0 [...] Sex Assigned at Male 08/22/2023 8:32 AM JOURNEYMAN APPRENTICE ELECTRICIANS Legal Sex Male 7:01 PM CDT Gender Identity Male 08/22/2023 8:32 AM JOURNEYMAN APPRENTICE ELECTRICIANS Sexual Orientation Not on file Last Filed Vital Signs Vital Sign Reading Time Taken Comments Blood Pressure 138/82 12/12/2024 10:26 AM CDT Pulse 77 12/12/2024 10:26 AM CDT Temperature 36.8 C (98.2 F) 12/12/2024 10:26 AM CDT Respiratory Rate 20 12/12/2024 10:26 AM CDT Oxygen Saturation 96% 12/12/2024 10:26 AM CDT Inhaled Oxygen Concentration - - Weight 96.3 kg (212 lb 6.4 oz) 12/12/2024 10:26 AM CDT Height 175.3 cm (5' 9) 12/12/2024 10:26 AM CDT Body Mass Index 31.37 12/12/2024 10:26 AM CDT Plan of Treatment Health Maintenance Due Date Last Done Comments Hepatitis C 1973 Annual Medicare Wellness Visit 01/04/2020 Pneumococcal Vaccine: 50+ Years (2 of 2 - PCV) 06/02/2021 06/02/2020 COVID-19 Vaccine ( season) 2024 05/31/2024, 05/27/2023, 05/25/2022, Additional history exists Colorectal Cancer Screening Colonoscopy (10 Years) 11/23/2025 11/24/2015 RSV Immunization or 60+ Years (1 - 1-dose 75+ series) 2030 DTaP, Tdap and Td Vaccines (2 - Td or Tdap) 03/16/2032 03/16/2022 Zoster Vaccines Completed 06/03/2023, 03/01, 01/29/2015 PHQ-2 (Physician [place]) Completed 10/02/2024 Meningococcal B Vaccine Aged Out No l onger eligible based on patient's age to complete this topic Meningococcal Vaccine Aged Out No omayra sara eligible based on patient's age to complete this topic RSV Immunizations Under 20 Months Aged Out No longer eligible based on patient's age to complete this topic Procedures Procedure Name Priority Date/Time Associated Diagnosis Comments PROCEDURE GENERIC (SCAN ORDER) 01/22/2025 PROCEDURE GENERIC (SCAN ORDER) 01/22/2025 MRI GENERIC 12/20/2024 IMAGE GENERIC 12/20/2024 COLONOSCOPY GENERIC (SCAN ORDER) Routine 11/24/2015 from Last 3 Months or Most Recently Relevant to Health Maintenance Results * PROCEDURE GENERIC (SCAN ORDER) (01/22/2025) 01/22/2025 [facility] Scanned SCANNING Final Resu lt * PROCEDURE GENERIC (SCAN ORDER) (01/22/2025) 01/22/2025 [facility] Scanned SCANNING Final Resu lt * MRI GENERIC (12/20/2024) Anatomical Region Laterality Modality Other 12/20/2024 [facility] Scanned SCANNING Final Resu lt * IMAGE GENERIC (12/20/2024) Anatomical Region Laterality Modality Other 12/20/2024 [facility] Scanned SCANNING Final Resu lt * COLONOSCOPY (11/24/2015) us Documents Scanned SCANNING Final Result [facility] from Last 3 Months or Most Recently Relevant to Health Maintenance Insurance [facility] Advance Directives * Full Code (Latest Code Status on File) Date Activated Date Inactivated Comments 05/01/2020 2:53 PM 05/02/2020 3:12 PM Care Teams Steward/Stewardess Room Relationship Specialty Start Date End Date Venancio Sapp MD [address] [facility] [address] [place] [address] PCP - General FAMILY PRACTICE 08/23/18
--- NOTE | 2025-03-20 12:40 | ECG_ITS ---
Test Date: 2025-03-20 13:05:18 Measurements Intervals [place] Rate: 54 P: 97 WA: 366 QRS: 19 QRSD: 98 T: 7 QT: 457 QTc: 436 Interpretive Statements SINUS BRADYCARDIA MISSING LEAD V4 BASELINE ARTIFACT- I, III, AVR, AVL, AVF, V1-V6 BORDERLINE ECG Compared to ECG 01/27/2024 08:06:30 NO SIGNIFICANT CHANGE Electronically Signed On 03-20-2025 13:34:54 CDT by Johnson Alamo D.O.
[2025-03-20 13:18] LABS: Add Urine Microscopic? NO; Appearance Urine Clear (Clear); Glucose Urine UA Negative (Negative); Leukocyte Esterase Ur Negative LEU/UL (Negative); Nitrate Urine Negative (Negative); Specific Grav Ur 1.025 (1.001-1.035)
[2025-03-20 13:34] LABS: Hematocrit 41.5 % (42.0-52.0); Hemoglobin 12.9 g/dL (14.0-18.0); Mean Corpuscular HGB Conc 31.1 g/dl (32-36); Mean Corpuscular Hemoglobin 29.1 pg (26-34); Mean Corpuscular Volume 93.7 fl (80-100); Platelet Count Result 241 k/mm3 (150-375); Red Blood Count 4.43 M/mm3 (4.6-6.20); White Blood Count 5.9 K/mm3 (4.5-10.0)
[2025-03-20 13:44] LABS: Anion Gap 8 mmol/L (4-12); Blood Urea Nitrogen 28 mg/dL (9-20); Calcium 9.6 mg/dL (8.4-10.2); Carbon Dioxide 27 mmol/L (22-30); Chloride 103 mmol/L (98-107); Estimated Glomerular Filt Rate > 60; Glucose 101 mg/dL (65-110); Potassium 4.4 mmol/L (3.4-5.0); Sodium 138 mmol/L (137-145)
[2025-03-20 13:53] LABS: INR 0.9; Prothrombin Time 12.4 Seconds (11.1-14.7)
[2025-03-20 13:55] LABS: Partial Thromboplastin Time 29.4 Seconds (22.3-36.8)
== END 2025-03-20 11:34 | disposition home or self-care (01) ==
LOC: ANHSURGERY 11:37
PROVIDERS: PCP Family Medicine; Visit Provider Neurological Surgery
DX: Z01.818 Encounter for other preprocedural examination (principal); M48.07 Spinal stenosis, lumbosacral region
CPT/HCPCS: 36415; 80048; 81003; 85027; 85610; 85730; 93005

== ENCOUNTER 2025-04-02 01:05 | Day surgery (SDC) | payer MEDICARE, SELFPAY ==
--- NOTE | 2025-03-20 11:57 | PC.NURSE ---
Addendum entered by Estefany Mathews RN 03/20/25 13:28: ARRIVE AT 9:30 AM FOR 11:30 SURGERY Original Note: Report to the Outpatient Waiting Room, entrance under the green pavilion located off [facility], at time __8:30 am on date _04/02/25 . Planned Procedure Time: __11:30 am .? Time changes happen often and if your time is changed the preop area will call you the afternoon before. - You and your visitor will be asked to self-screen and do not enter if you have any COVID symptoms. Please call surgeon if you need to reschedule. - A mask is optional within the hospital at this time. Patients may have clear liquids (water, carbonated beverages, clear teas, apple juice) until 3 hours prior to surgery ( 7:30 am)with a maximum of 20 ounces. - No food from midnight until time of surgery and no smoking, or chewing tobacco (or any form of nicotine). No chewing gum, candy or mints. Take only the following medications with a SIP of water on the morning of surgery: NONE DO NOT STOP ANY OF YOUR OTHER PRESCRIPTION MEDICATIONS PRIOR TO SURGERY EXCEPT THE FOLLOWING Hold all vitamins and supplements for 3 days per anesthesiologist.LAST DOSE 03/29/25 Medications to discontinue per physician ___PATIENT STATES HOLD ASPIRIN AND MELOXICAM 7 DAYS PRE OP PER DR STEINER Date to take last dose____03/25/25 Please no make-up, nail romanian, hairspray, perfume, deodorant, or body powder the day of surgery.? No jewelry (including any body piercings) or valuables the day of surgery, leave them at home.? Please take a shower or bath the night before, or the morning of, surgery with an antibacterial soap.? Wear comfortable, loose fitting clothing.? Children are encouraged to wear pajamas. - Jewelry must be removed prior to entering the operating room.? Rings and piercings that are not removed may be cut off. - The hospital will not accept responsibility for valuables.? - Please leave all valuables, including medications, at home the day of surgery. If you are going home after surgery, a licensed restaurant delivery driver must drive you home.? - NO public transportation without another adult if you receive anesthesia. - We recommend that an adult stay with you for 24 hours following discharge. - We also recommend that you do not drive, make important decision, drink alcoholic beverages, or take any drugs that were not prescribed by your health care provider for at least 24 hours after your discharge time. For Pediatric surgeries, we recommend two adults accompany the child home. Follow any additional instructions given to you from your surgeon. verbal and written instructions given to __PATIENT AND KIKI and asked if any additional questions and then verbalized understanding. Patient advised to call surgeon office or pre surgery nurse liaison [phone] if any additional questions.
[2025-03-20 12:01] VITALS: BMI 31.2
[2025-03-20 12:34] VITALS: BP 133/86; PULSE 63; RESP 18; TEMP 36.9; O2SAT 99
[2025-04-02] VITALS (7 sets, daily range): BP systolic 140–156; BP diastolic 70–97; PULSE 50–76; RESP 14–16; TEMP 36.1–36.6; O2SAT 100
--- NOTE | ~2025-04-02 | XR_ITS ---
XR fluoroscopy no charge Indication: Left L5-S1 far lateral foraminotomy TECHNIQUE: Fluoroscopy used during Left L5-S1 far lateral foraminotomy performed by [Jose Cade MD] on 04/02/2025. 3 seconds of fluoroscopy with one fluoroscopic images captured. FINDINGS: Correlate with procedure note. IMPRESSION: Fluoroscopy used during Left L5-S1 far lateral foraminotomy. Reviewed, dictated and finalized at location O.
--- OUTSIDE RECORDS SUMMARY | 2025-04-02 01:08 | XMS_ITS | Encounter Summary ---
Author Organization [facility] Address [facility] [place] [address] Care Team Providers Care Purification Operator Helper Name Role Phone Venancio Sapp MD Primary Care Provider + Encounter Details Date Type Department Care Team (Late st Contact Info) Description 04/19/2016 Abstract [facility] CONVERSION [address] [place] [address] , Generic ConversionMD Social History Tobacco Use Types Packs/Day Years Used Date Smoking Tobacco: Never Assessed Sex and Gender Information Value Date Recorded Sex Assigned at Male 08/22/2023 8:32 AM ASSURANCE SENIOR MANAGER Legal Sex Male 7:01 PM CDT Gender Identity Male 08/22/2023 8:32 AM ASSURANCE SENIOR MANAGER Sexual Orientation Not on file documented as of this encounter Plan of Treatment Not on file documented as of this encounter Visit Diagnoses Not on filedocumented in this encounter Additional Health Concerns Infection Onset Date Last Indicated Resolved Time COVID-19 Rule Out 06/11/2021 06/11/2021 06/11/2021 9:25 AM ASSURANCE SENIOR MANAGER COVID-19 Rule Out 06/12/2021 06/12/2021 06/12/2021 3:46 PM ASSURANCE SENIOR MANAGER documented as of this encounter Care Teams Purification Operator Helper Relationship Specialty Start Date End Date Venancio Sapp MD [address] [phone] PCP - General FAMILY PRACTICE 08/23/18 documented as of this encounter
--- OUTSIDE RECORDS SUMMARY | 2025-04-02 01:08 | XMS_ITS | Clinical Summary ---
Author Organization [facility] Address [facility] [place] [address] Care Team Providers Care Director Of Analytics Name Role Phone Venancio Sapp MD Primary [...] 2020 Assessment & Plan (08/02/2021 8:51 PM MANAGER COUNTRY): Some improvement in left hip pain but not complete. Is wanting to proceed with injection into the hip joint proper to see if that gives him the relief that he is looking for. Assessment & Plan (07/12/2021 4:16 PM MANAGER COUNTRY): We discussed the risks, benefits and alternatives. [...] 021 Assessment & Plan (08/02/2021 8:50 PM MANAGER COUNTRY): We discussed the risks, benefits and alternatives. [...] months Assessment & Plan (07/12/2021 4:17 PM MANAGER COUNTRY): We discussed the risks, benefits and alternatives. [...] mg twice daily. Begin physical therapy at [facility]. TENS unit to help control pain 30 [...] 05/04/2021 Assessment & Plan (08/02/2021 8:51 PM MANAGER COUNTRY): Radiology to inject the left hip under [...] 05/04/2021 Assessment & Plan (07/12/2021 4:17 PM MANAGER COUNTRY): We discussed the adverse effects of weight [...] weight loss is through diet. Pulmonary embolism ([facility]) 05/01/2020 Primary osteoarthritis of right hip 08/23/2018 [...] HEALTH INFO SRVCS Scanned, Doc [facility] from Last 3 Months Immunizations Immunization Administration Dates Next Due Flucelvax 2 YRS+ (Multi-Dose Vial) 05/18/2019 Fluzone High Dose (IIV, triv alent, 0.5mL) 05/31/2024 Fluzone High Dose - >Age 65 (Prefilled Syringe) 05/27/2023 Influenza (Generic) 05/18/2019 Influenza Adult (Generic) 05/16/2021,09/2019,05/18/2019,2017,05/10/2012 MODERNA COVID-19 (12+) MRNA, LNP-S, PF, 100 MCG/ 0.5 ML DOSE 10/02/2020,09/04/2020 MODERNA COVID-19 (GLUE WHEEL OPERATOR MARCO A MASON), MRNA, LNP-S, PF, 50 MCG/ 0.25 ML DOSE 01/13/2022,06/23/2021 Pneumococcal (Pneumovax 23) 06/02/2020 Shingrix 06/03/2023,03/16/2023 Tdap (Adacel) 03/16/2022 Zoster (Zostavax) 45361 Unt/0.65Ml 01/29/2015 Family History Medical History Relation [...] Sex Assigned at Male 08/22/2023 8:32 AM MANAGER COUNTRY Legal Sex Male 7:01 PM CDT Gender Identity Male 08/22/2023 8:32 AM MANAGER COUNTRY Sexual Orientation Not on file Last Filed [...] Vaccines Completed 06/03/2023, 03/01, 01/29/2015 PHQ-2 (Physician [place]) Completed 10/02/2024 Meningococcal B Vaccine Aged Out [...] ORDER) 01/22/2025 PROCEDURE GENERIC (SCAN ORDER) 01/22/2025 COLONOSCOPY GENERIC (SCAN ORDER) Routine 11/24/2015 from Last 3 Months or Most Recently Relevant to Health Maintenance Results * PROCEDURE GENERIC (SCAN ORDER) (01/22/2025) 01/22/2025 [facility] Scanned SCANNING Final Resu lt * PROCEDURE GENERIC (SCAN ORDER) (01/22/2025) 01/22/2025 [facility] Scanned SCANNING Final Resu lt * COLONOSCOPY (11/24/2015) us Documents Scanned SCANNING Final Result Performing Organization Address City/State/[facility] Co de Phone Number [facility] from Last 3 Months or Most Recently Relevant to Health Maintenance Insurance Advance Directives * Full Code (Latest Code Status on File) Date Activated Date Inactivated Comments 05/01/2020 2:53 PM 05/02/2020 3:12 PM Care Teams Director Of Analytics Relationship Specialty Start Date End Date Venancio Sapp MD [address] [facility] [address] [place] [phone] PCP - General FAMILY PRACTICE 08/23/18
--- OUTSIDE RECORDS SUMMARY | 2025-04-02 01:08 | XMS_ITS | Encounter Summary ---
Author Organization [facility] Address [facility] [place] [address] Care Team Providers Care Automotive Light Mechanic Name Role Phone Venancio Sapp MD Primary Care Provider + Encounter Details Date Type Department Care Team (Late st Contact Info) Description 03/15/2003 Abstract [facility] Conversion , Generic Conversion, Social History Tobacco Use Types Packs/Day Years Used Date Smoking Tobacco: Never Assessed Sex and Gender Information Value Date Recorded Sex Assigned at Male 08/22/2023 8:32 AM SHIFT NURSE MANAGER Legal Sex Male 7:01 PM CDT Gender Identity Male 08/22/2023 8:32 AM SHIFT NURSE MANAGER Sexual Orientation Not on file documented as of this encounter Plan of Treatment Not on file documented as of this encounter Visit Diagnoses Not on filedocumented in this encounter Additional Health Concerns Infection Onset Date Last Indicated Resolved Time COVID-19 Rule Out 06/11/2021 06/11/2021 06/11/2021 9:25 AM SHIFT NURSE MANAGER COVID-19 Rule Out 06/12/2021 06/12/2021 06/12/2021 3:46 PM SHIFT NURSE MANAGER documented as of this encounter Care Teams Automotive Light Mechanic Relationship Specialty Start Date End Date Venancio Sapp MD [address] [phone] PCP - General FAMILY PRACTICE 08/23/18 documented as of this encounter
--- OUTSIDE RECORDS SUMMARY | 2025-04-02 01:08 | XMS_ITS | Encounter Summary ---
Author Organization [facility] Address [facility] [place] [address] Care Team Providers Care Cota Name Role Phone Venancio Sapp MD Primary Care Provider + Encounter Details Date Type Department Care Team (Late st Contact Info) Description 10/06/2017 Abstract [facility] Venancio Sapp MD [address] [place] [phone] Social History Tobacco Use Types Packs/Day Years Used Date Smoking Tobacco: Never Sex and Gender Information Value Date Recorded Sex Assigned at Male 08/22/2023 8:32 AM MICROBIOLOGY DIRECTOR Legal Sex Male 7:01 PM CDT Gender Identity Male 08/22/2023 8:32 AM MICROBIOLOGY DIRECTOR Sexual Orientation Not on file documented as of this encounter Miscellaneous Notes * Letter - Venancio Sapp MD - 10/06/2017 12:00 AM CST Oct 06, 2017 Maxx Velazquez [address] [place] [address] Dear Maxx Velazquez, Thank you for choosing [facility] for your health care needs. We appreciate the opportunity to help you maintain your well being. [facility] Your results came back normal. Please remember to follow up as discussed at your last appointment .If you have any questions please feel free to call the office at [phone], Option #3 or Option #1 to make an appointment to discuss these results. Respectfully Yours, Electronically Signed by: Venancio Sapp MD Cc: Patients Medical Record OBIOLOGY DIRECTOR documented in this encounter Plan of Treatment Not on file documented as of this encounter Visit Diagnoses Not on filedocumented in this encounter Additional Health Concerns Infection Onset Date Last Indicated Resolved Time COVID-19 Rule Out 06/11/2021 06/11/2021 06/11/2021 9:25 AM MICROBIOLOGY DIRECTOR COVID-19 Rule Out 06/12/2021 06/12/2021 06/12/2021 3:46 PM MICROBIOLOGY DIRECTOR documented as of this encounter Care Teams Cota Relationship Specialty Start Date End Date Venancio Sapp MD [address] [place] [phone] PCP - General FAMILY PRACTICE 08/23/18 documented as of this encounter
--- OUTSIDE RECORDS SUMMARY | 2025-04-02 01:08 | XMS_ITS | Encounter Summary ---
Author Organization [facility] Address [facility] [place] [address] Care Team Providers Care Chief Nurse Executive Name Role Phone Venancio Sapp MD Primary Care Provider + Encounter Details Date Type Department Care Team (Late st Contact Info) Description 01/06/2017 Abstract [facility] Venancio Sapp MD [address] [place] [phone] Social History Tobacco Use Types Packs/Day Years Used Date Smoking Tobacco: Never Sex and Gender Information Value Date Recorded Sex Assigned at Male 08/22/2023 8:32 AM COMMUNICATIONS DIRECTOR Legal Sex Male 7:01 PM CDT Gender Identity Male 08/22/2023 8:32 AM COMMUNICATIONS DIRECTOR Sexual Orientation Not on file documented as of this encounter Miscellaneous Notes * Letter - Venancio Sapp MD - 01/06/2017 12:00 AM CDT Jan 06, 2017 Maxx Velazquez [address] [place] [address] Dear Maxx Velazquez, Thank you for choosing [facility] for your health care needs. We appreciate the opportunity to help you maintain your well being. You recently had labs drawn. Your results came back normal. Please remember to follow up as discussed at your last appointment .If you have any questions please feel free to call the office at [phone], Option #3 or Option #1 to make an appointment to discuss these results. Respectfully Yours, Electronically Signed by: Venancio Sapp MD Cc: Patients Medical Record UNICATIONS DIRECTOR documented in this encounter Plan of Treatment Not on file documented as of this encounter Visit Diagnoses Not on filedocumented in this encounter Additional Health Concerns Infection Onset Date Last Indicated Resolved Time COVID-19 Rule Out 06/11/2021 06/11/2021 06/11/2021 9:25 AM COMMUNICATIONS DIRECTOR COVID-19 Rule Out 06/12/2021 06/12/2021 06/12/2021 3:46 PM COMMUNICATIONS DIRECTOR documented as of this encounter Care Teams Chief Nurse Executive Relationship Specialty Start Date End Date Venancio Sapp MD [address] [place] [phone] PCP - General FAMILY PRACTICE 08/23/18 documented as of this encounter
--- NOTE | 2025-04-02 07:29 | PM.IMHP ---
H&P: HPI History of Present Illness Date/Time: 04/02/25 07:29 Chief Complaint: Back and leg pain Narrative: Yanira is here today for left L5-S1 far lateral foraminotomy. He is a 70-year-old gentleman who is well known to me for problems related to his lumbar spine and underwent an at L3-5 hemilaminectomy in March 2024. After doing well he started to develop discomfort in the left buttock that then generalized down the left lower extremity with weakness of dorsiflexion of the foot manifesting itself I feeling is of the foot is slapping and being able to hear that as he walks. As mentioned, this has been going on since late 2023. While the weakness is present is not the predominant symptom. He is more concerned about the pain in his back, buttock and left leg. He does not report any bowel or bladder difficulty. He does not report specific dermatomal numbness. He remains ambulatory but has distracting pain on a daily basis. It can be severe. The pain came on without inciting event. He has had imaging of the lumbar spine and underwent an EMG nerve conduction study. Review of Systems Review of Systems: All systems reviewed & are unremarkable except as noted in HPI and below Denies chills, Denies fever, Denies weight gain and Denies weight loss Eyes Denies change in vision and Denies diplopia ENT Denies disequilibrium Card Denies chest pain and Denies dyspnea Resp Denies cough and Denies dyspnea GI Denies abdominal pain, Denies change in bowel habits, Denies fecal incontinence and Denies vomiting Denies hematuria, Denies oliguria, Denies difficulty urinating, Denies dysuria, Denies urinary frequency, Denies urinary hesitancy, Denies urinary incontinence and Denies urinary urgency Musc Reports as per HPI Skin/ Breast Reports system reviewed and no additional complaints, except as documented Neuro Reports as per HPI Psych Reports no additional complaints, Denies depression and Denies hopelessness Endo Reports no additional complaints and Denies polyuria Sidney/ Lymph Reports no additional complaints Aller/ Immun Reports no additional complaints PMF Past Medical History Medical History Obesity Surgical History Surgical History History of total hip arthroplasty Family History Family History Father Heart disease Mother Pancreatic cancer Social History Social History (Updated 03/12/25 @ 14:16 by Holly Alonso MA) Smoking status: Never smoker Second hand tobacco smoke exposure: No Alcohol intake: never Substance use: never Substance use type: does not use Do You Feel Safe in your Home?: Yes Lack of Transportation: No Lack of Food: Never True Current Housing: I Have Housing Concerned About Future Housing: No Difficulty Paying Gas/Electric Bills: No Difficulty Paying for Meds: No Currently Unemployed: No Education: High School Diploma/GED Difficulty w/ Childcare or Family Care: No Living arrangements: with family Spiritual care concerns: No Meds Home Medications and Allergies Home Medications ?Medication ?Instructions ?Recorded ?Confirmed ?Type allopurinol 300 mg tablet 300 mg PO DAILY 11/29/23 03/20/25 History aspirin 81 mg tablet,delayed 81 mg PO DAILY 11/29/23 03/20/25 History release (Adult Low Dose Aspirin) meloxicam 15 mg tablet 15 mg PO DAILY 11/29/23 03/20/25 History vlazjafkohjf-ussnmlgs-suluhz tablet 1 tablet PO DAILY 11/29/23 03/20/25 History pravastatin 20 mg tablet 20 mg PO QPM 11/29/23 03/20/25 History cholecalciferol (vitamin D3) 25 1,000 unit PO DAILY 03/20/25 03/20/25 History mcg (1,000 unit) capsule Allergies Allergy/AdvReac Type Severity Reaction Status Date / Time No Known Allergies Allergy Verified 03/20/25 12:02 Exam Narrative: Exam Exam Const Other: General: cooperative, no acute distress, well developed, alert and awake Orientation/Consciousness: oriented to person, oriented to place and oriented to time Constitutional Limitations: no limitations Other: The patient is a normally developed, normal appearing male sitting on the examination table in no acute distress. He is awake, alert, and oriented x3 with good fund of knowledge, recall of events, and fluent speech. HENMT Head: normocephalic and atraumatic Ears: external ears normal Face/Nose/Sinus: Normal external nose present Eyes Eyelids: eyelids normal Pupils: Yes Pupils normal by confrontation EOM: EOMs intact bilaterally Neck General: Yes no meningeal signs, Yes supple and Yes no JVD Resp Effort/Inspection: normal respiratory effort and able to speak in complete sentences Cardio Rate: Yes regular rate GI Inspection: No abdominal distension Musc Other: Examination of the back reveals no tenderness. Range of motion of the back is slightly limited without pain in forward flexion, extension, and lateral rotation to both sides. Straight leg raise is negative bilaterally. Heladio?s test is negative bilaterally. Skin General: normal color Neuro General: Yes oriented to person, Yes oriented to place, Yes oriented to time, Yes normal cognition and Yes no meningeal signs Cranial Nerves: Yes CN's II-XII intact bilaterally Other: Motor: strength is 4+ out of 5 in the left dorsiflexors and EHL but is otherwise normal and symmetric in the bilateral lower extremities. Sensory: Sensation is intact to light touch throughout the upper and lower extremities bilaterally. Reflexes: Deep tendon reflexes are difficult to elicit at the knees or ankles bilaterally. There is no clonus. Gait: Gait, station, and transfers are independent and steady for short periods of time and over short distances. Psych Appearance: grossly normal Mental status: Yes mental status grossly normal Mood: congruent mood Affect: Yes normal affect Speech/Movement: Normal speech and movement present Attitude: Yes cooperative Thought Content: Normal thought content present Review of studies: MRI of the lumbar spine was personally reviewed by me. This demonstrates good result from laminectomy at L3-5. There is foraminal stenosis on the left at L3-4 and L5-S1 which compresses the exiting L3-L5 nerve root on the right at L4-5 and L5-S1 the compresses the exiting nerve roots at those levels. Assessment and Plan Assessment and plan (1) Neural foraminal stenosis of lumbosacral spine: Code(s): M48.07 - Spinal stenosis, lumbosacral region Status: Acute Plan yanira is a 70-year-old gentleman with a left L5 radiculopathy, confirmed by EMG /nerve conduction study with foraminal stenosis on the left at L5-S1 the counts for that. We discussed potential surgical management of his problem by way of multilevel fusion operation or simple decompression the foramen on the left at L5-S1. The latter operation has a higher chance of failure cut requiring future surgery but is much simpler and more straightforward operation with a good chance of success and therefore this is what we have recommended him and what he thinks is reasonable. I therefore described him left L5-S1 far lateral foraminotomy, its risks, potential benefits, the operative and postoperative course in detail answered all his questions personally. We discussed risks including but not limited to permanent neurologic deficit secondary to nerve root injury, need for reoperation secondary to infection, bleeding, CSF leak, adjacent level disease, recurrent residual pathology or instability, failure of the procedure to relieve his pain or symptoms, persistent pain, medical complications related anesthesia or surgery, etc.. He indicates understanding and elects to proceed with that operation.
--- NOTE | 2025-04-02 07:31 | WPDHPUPDATE1 ---
History and Physical Update Update Date/Time: 04/02/25 07:31 History and Physical has been reviewed, including an updated exam of the patient. There are NO changes in the patient's condition. Risks, benefits, and alternatives have been discussed and questions answered. Patient agrees to proceed with procedure.
--- NOTE | 2025-04-02 12:32 | WPDANESEPPF ---
Anes - Initial Pre Proc Eval Procedure: Operation Date: 04/02/25 11:30 Proposed Procedures p Left L5-S1 Far Lateral Foramintomy - Jose Cade MD Date/Time: 04/02/25 12:32 Surgeon: Jose Cade MD Pre Op Diagnosis: lumbar stenosis Patient Data Age: 70 Gender: M Height: 1.75 m Weight: 95.5 kg Last Vital Signs Temp 36.6 C 04/02/25 10:00 Pulse 76 04/02/25 10:00 Resp 16 04/02/25 10:00 BP 150/97 H 04/02/25 10:00 Pulse Ox 100 04/02/25 10:00 O2 Del Method Room Air 04/02/25 10:00 Allergies Allergy/AdvReac Type Severity Reaction Status Date / Time No Known Allergies Allergy Verified 04/02/25 10:32 Home Medications ?Medication ?Instructions ?Recorded ?Confirmed ?Type allopurinol 300 mg tablet 300 mg PO DAILY 11/29/23 03/20/25 History aspirin 81 mg tablet,delayed 81 mg PO DAILY 11/29/23 04/02/25 History release (Adult Low Dose Aspirin) meloxicam 15 mg tablet 15 mg PO DAILY 11/29/23 04/02/25 History ufwzwivndtvm-xyogcmmm-recgqt tablet 1 tablet PO DAILY 11/29/23 04/02/25 History pravastatin 20 mg tablet 20 mg PO QPM 11/29/23 03/20/25 History cholecalciferol (vitamin D3) 25 1,000 unit PO DAILY 03/20/25 04/02/25 History mcg (1,000 unit) capsule Patient hx anesthesia problems: none Family hx anesthesia problems: none Results Review: All pre-operative results and documents have been reviewed as part of the pre-operative evaluation. [facility] Past Medical History Medical History Obesity Surgical History Surgical History History of total hip arthroplasty Family History Family History Father Heart disease Mother Pancreatic cancer Social History Social History Smoking status: Never smoker Second hand tobacco smoke exposure: No Alcohol intake: never Substance use: never Substance use type: does not use Do You Feel Safe in your Home?: Yes Lack of Transportation: No Lack of Food: Never True Current Housing: I Have Housing Concerned About Future Housing: No Difficulty Paying Gas/Electric Bills: No Difficulty Paying for Meds: No Currently Unemployed: No Education: High School Diploma/GED Difficulty w/ Childcare or Family Care: No Living arrangements: with family Spiritual care concerns: No Anes - Eval Final PreProcedure Day of Procedure 04/02/25 12:32 Patient weight: obese Heart: regular rate and rhythm Lungs: clear to auscultation Airway: Mallampati scale class III Neurological: alert and oriented Last oral intake: >/= 8 hours ASA classification: III Emergent: no Anesthetic plan: proceed Anesthesia type and monitoring: general ETT and standard monitoring Results Review: All pre-operative results and documents have been reviewed as part of the pre-operative evaluation. Informed Consent: The patient's anesthetic plan and its attendant risks and benefits were discussed with the patient/family/POA. Questions were solicited and answers provided to the satisfaction of the patient/family/POA.
[2025-04-02] MEDS: ceFAZolin 2 GM in SODIUM CHLORIDE 0.9% IV 50 ML 100 ML IVPB (12:47)
[2025-04-02] MEDS: LIDO 1%/EPINEPHRINE 1:100,000 20 ML VIAL INFILTRATE (13:29)
[2025-04-02] MEDS: LACTATED RINGERS 1,000 ML 30 ML IV CONT ×2 (14:26)
--- NOTE | 2025-04-02 14:39 | W.PM.PROC2 ---
Procedure Note - Detailed Date of Procedure 04/02/25 Pre-op Diagnosis lumbar stenosis Post-op Diagnosis Same Procedure Performed Left L5-S1 far lateral foraminotomy Surgeon Jose Cade MD Anesthesia General Description of Procedure The patient was taken to the operating room in the supine position, was sedated, intubated placed under general anesthesia in routine fashion. He was then turned into the prone position on a Michele frame. There operation on his back was examined, marked for incision, prepped and draped in routine sterile fashion. Incision was marked over the L5 and S1 levels in the midline. This area was injected with 0.5% lidocaine with [id number] epinephrine. Intravenous antibiotics given prior to incision. Incision was made with a 10 blade scalpel down to the lumbodorsal fascia. Bovie cautery was used come to the soft tissue into the lateral mass was discovered. I have the facet at L4-5 and L5-S1 were uncovered as well as the pars. A verifying x-rays obtained to verify the level of operation. A Midas Navneet drill was used to perform a lateral resection of the pars and facet to the soft contents of the foramen were encountered. Kerrison punches and curved curettes were used to expand the bony foraminotomy. Under microscopy the yellow ligament was lifted removed piecemeal using Kerrison punches. The nerve root was identified. Significant soft tissue which may have been synovial cyst was encountered inferiorly. This was coagulated and removed using Kerrison punches. An David curette and Luo rongeur were used to push free and remove soft material from beneath the nerve. All these maneuvers were performed until a nerve hook could be placed proximally and distally in the foramen to confirm lack of compression. The wound was copiously irrigated with bacitracin irrigation all bleeding stopped with bipolar Bovie cautery and Gelfoam thrombin powder. The wound was then closed in layered fashion with 2-0 Vicryl interrupted sutures in the lumbodorsal fascia and Gee's layer. 3-0 Vicryl buried interrupted sutures were placed in the dermis and skin was closed with a running 4-0 Monocryl subcuticular stitch and dressed with Dermabond. The patient was allowed to wake up in the operating room and was taken to the recovery room in stable condition. There were no immediate complications of this operation. All counts reported correct at the end of the case. Blood loss was 25 cc. The patient was neurologically at his baseline postoperatively. CPT code: 48639, [id number] Estimated Blood Loss 25 Complications None Condition Stable Disposition PACU [facility] Billing Surgery - Charge Forward: Surgery Billing
[2025-04-02] MEDS: oxyCODONE HCL (*CRX) 5 MG TAB IR PO (15:22)
== END 2025-04-02 16:03 | disposition home or self-care (01) ==
PROVIDERS: PCP Family Medicine; Visit Provider Neurological Surgery
PROC: (CPT 63005; principal; 2025-04-02 11:30)
DX: M48.07 Spinal stenosis, lumbosacral region (principal); M48.061 Spinal stenosis, lumbar region without neurogenic claudication
CPT/HCPCS: 63056; 99199; J0690; A9270; J1100; J1171; J2003; J2004; J2250; J2371; J2405; J2704; J7120

== ENCOUNTER 2025-06-08 12:19 | Outpatient (CLI) | payer MEDICARE, SELFPAY ==
--- NOTE | ~2025-06-08 | MR_ITS ---
EXAMINATION: MR lumbar spine wo con DATE: 06/08/2025 13:02 INDICATION: Spinal stenosis, lumbosacral region. TECHNIQUE: Magnetic resonance imaging (MRI) of the lumbar spine was performed without intravenous contrast. Sequences included sagittal T2-weighted FSE, sagittal T2-weighted FS FSE, sagittal T1-weighted FSE, and axial T2-weighted FSE. COMPARISON: Lumbar spine MRI 12/20/2024 FINDINGS: There is 4 degrees dextrocurvature of lumbar spine. There is 3 mm retrolisthesis of T12 on L1, 3 mm anterolisthesis of L3 on L4, 3 mm retrolisthesis of L4 and L5, and 5 mm retrolisthesis of L5 on S1. There is mild chronic anterior wedging of T12 and L1 vertebral bodies. There is severely decr eased disc height from L1-L2 through L5-S1. The distal spinal cord signal intensity is normal. The conus medullaris is at L1. The following disc levels are specifically discussed: L1-L2: The disc is bulging. There is severe bilateral facet joint osteoarthritis. There is mild bilateral neural foraminal stenosis. There is mild central canal stenosis. L2-L3: The disc is bulging. There is severe right and moderate left facet joint osteoarthritis. There is moderate bilateral neural foraminal stenosis. There is mild central canal stenosis. L3-L4: The disc is bulging and has an annular fissure. There is severe bilateral facet joint osteoarthritis. There is mild right and moderate left neural foraminal stenosis. There is mild central canal stenosis. There is posterior decompression. L4-L5: The disc is bulging and has an annular fissure. There is severe bilateral facet joint osteoarthritis. There is moderate bilateral neural foraminal stenosis. There is mild central canal stenosis. There is posterior decompression. L5-S1: The disc is bulging and has an annular fissure. There is moderate bilateral facet joint osteoarthritis. There is moderate bilateral neural foraminal stenosis. There is mild central canal stenosis. There is posterior decompression. IMPRESSION: 1. Severe lumbar spondylosis, stable from 12/20/2024. Reviewed, dictated and finalized at location E. ENT RELATIONS SPECIALIST
== END 2025-06-08 12:20 | disposition home or self-care (01) ==
PROVIDERS: PCP Family Medicine; Visit Provider Neurological Surgery
DX: M48.07 Spinal stenosis, lumbosacral region (principal); M47.896 Other spondylosis, lumbar region
CPT/HCPCS: 72148

== ENCOUNTER 2025-07-30 07:55 | Outpatient (CLI) | payer MEDICARE, SELFPAY ==
[2025-07-30 08:55] LABS: Add Urine Microscopic? NO; Appearance Urine Clear (Clear); Glucose Urine UA Negative (Negative); Leukocyte Esterase Ur Negative LEU/UL (Negative); Nitrate Urine Negative (Negative); Specific Grav Ur 1.023 (1.001-1.035)
[2025-07-30 08:56] LABS: Hematocrit 43.5 % (42.0-52.0); Hemoglobin 14.3 g/dL (14.0-18.0); Mean Corpuscular HGB Conc 32.9 g/dl (32-36); Mean Corpuscular Hemoglobin 30.3 pg (26-34); Mean Corpuscular Volume 92.2 fl (80-100); Platelet Count Result 246 k/mm3 (150-375); Red Blood Count 4.72 M/mm3 (4.6-6.20); White Blood Count 4.2 K/mm3 (4.5-10.0)
[2025-07-30 09:18] LABS: INR 0.9; Prothrombin Time 12.3 Seconds (11.1-14.7)
[2025-07-30 09:19] LABS: Partial Thromboplastin Time 25.5 Seconds (22.3-36.8)
[2025-07-30 09:24] LABS: Anion Gap 5 mmol/L (4-12); Blood Urea Nitrogen 24 mg/dL (9-20); Calcium 9.5 mg/dL (8.4-10.2); Carbon Dioxide 29 mmol/L (22-30); Chloride 104 mmol/L (98-107); Estimated Glomerular Filt Rate > 60; Glucose 94 mg/dL (65-110); Potassium 4.6 mmol/L (3.4-5.0); Sodium 138 mmol/L (137-145)
== END 2025-07-30 07:56 | disposition home or self-care (01) ==
LOC: ANHSURGERY 07:58
PROVIDERS: PCP Family Medicine; Visit Provider Neurological Surgery
DX: Z01.818 Encounter for other preprocedural examination (principal); M47.816 Spondylosis without myelopathy or radiculopathy, lumbar region; M96.1 Postlaminectomy syndrome, not elsewhere classified; E78.5 Hyperlipidemia, unspecified
CPT/HCPCS: 36415; 80048; 81003; 85027; 85610; 85730